=== PATIENT | female | born 1970 | race African-American/Black ===

== ENCOUNTER 2018-07-14 13:28 | Emergency (ER) | payer BC, SELFPAY | END 2018-07-14 14:00 | disposition home or self-care (01) | LOC: NAV ERS 13:28 | DX: J06.9 Acute upper respiratory infection, unspecified (principal); Z76.0 Encounter for issue of repeat prescription; I10 Essential (primary) hypertension; K21.9 Gastro-esophageal reflux disease without esophagitis; E78.5 Hyperlipidemia, unspecified; Z87.891 Personal history of nicotine dependence; Z79.899 Other long term (current) drug therapy; Z79.82 Long term (current) use of aspirin | CPT/HCPCS: 99283 ==

== ENCOUNTER 2020-12-02 20:48 | Emergency (ER) | payer BC ==
[2020-12-02] MEDS ORDERED: Aspirin Chewable 81 MG TAB ONE (21:03)
--- NOTE | 2020-12-02 21:18 | RAD ---
Exam: Chest one view HISTORY:Pain Comparison: 02/11/2012 FINDINGS: Cardiac silhouette: Normal Aorta: Unremarkable Pulmonary vessels: Normal Costophrenic angles: Clear LUNGS: No masses or consolidation. Pneumothorax: None Osseous abnormalities: None IMPRESSION: No acute cardiopulmonary process.
[2020-12-02 21:22] LABS: Red Blood Cell (RBC) Count 3.61 mill/uL (4.20-5.40); White Blood Cell (WBC) Count 6.2 thou/uL (4.8-10.8)
[2020-12-02 21:23] LABS: #Basophils 0.3 thou/uL (0.0-0.2); #Eosinphils 0.2 thou/uL (0.0-0.7); #Lymphocytes 2.4 thou/uL (1.20-3.40); #Monocytes 0.9 thou/uL (0.11-0.59); #Neutrophils 2.4 thou/uL (1.40-6.50); %Basophils 4.9 % (0.0-1.0); %Eosinophils 3.2 % (0.0-10.0); %Lymphocytes 37.1 % (21.0-51.0); %Monocytes 15.1 % (0.0-10.0); %Neutrophils 38.7 % (42.0-75.0); Hemoglobin 11.6 g/dL (12.0-16.0); Manual Diff?? NO; Mean Corpuscular HGB CONC 33.6 g/dL (32.0-36.0); Mean Corpuscular Hemoglobin 32.3 pg (27.0-31.0); Mean Corpuscular Volume 96.1 fL (78.0-98.0); Mean Platelet Volume 9.2 fL (7.4-10.4); Platelet Count 227 thou/uL (130-400); RBC Distribution Width 11.9 % (11.5-14.5)
[2020-12-02 21:24] LABS: Chloride 106 mmol/L (98-107)
[2020-12-02] MEDS ORDERED: Fentanyl 100 MCG/2 ML VIAL ONE (21:31)
[2020-12-02] MEDS ORDERED: Ondansetron PF 4 MG/2 ML Vial ONE (21:31)
[2020-12-02 21:32] LABS: ALT (SGPT) 210 U/L (8-55); AST (SGOT) 59 U/L (5-34); Alkaline Phosphatase 142 U/L (40-110); Anion Gap 15 mmol/L (10-20); BUN (Urea Nitrogen) 16 mg/dL (9.8-20.1); Bilirubin, Total 0.4 mg/dL (0.2-1.2); Calc. Creatinine Clearance 0 mL/min (70-130); Calcium 8.8 mg/dL (7.8-10.44); Carbon Dioxide 23 mmol/L (22-29); Globulin 3.2 g/dL (2.4-3.5); Glucose 103 mg/dL (70-105); Lipase 68 U/L (8-78); Potassium 3.7 mmol/L (3.5-5.1); Protein, Total 7.2 g/dL (6.0-8.3); Sodium 140 mmol/L (136-145)
== END 2020-12-02 22:23 | disposition left against medical advice (07) ==
LOC: NAV ERS 20:48
DX: R07.9 Chest pain, unspecified (principal); K21.9 Gastro-esophageal reflux disease without esophagitis; E78.5 Hyperlipidemia, unspecified; I10 Essential (primary) hypertension; F17.210 Nicotine dependence, cigarettes, uncomplicated; Z79.82 Long term (current) use of aspirin; Z79.899 Other long term (current) drug therapy
CPT/HCPCS: 71045; 80053; 83690; 83880; 84484; 85025; 93005; 94760; 96374; 96375; J2405; J3010

== ENCOUNTER 2022-07-10 13:04 | Emergency (ER) | payer BC ==
[~2022-07-10 13:04] MED LIST: Iopamidol 370 76% 100 ML VIAL ONE
[2022-07-10] MEDS ORDERED: Morphine 4 MG/ML VIAL ONE (13:40)
[2022-07-10 14:03] LABS: ALT (SGPT) 21 U/L (8-55); AST (SGOT) 22 U/L (5-34); Albumin 4.5 g/dL (3.5-5.0); Alkaline Phosphatase 127 U/L (40-110); Anion Gap 19 mmol/L (10-20); BUN (Urea Nitrogen) 13 mg/dL (9.8-20.1); Bilirubin, Total 0.6 mg/dL (0.2-1.2); Calc. Creatinine Clearance 0 mL/min (70-130); Carbon Dioxide 17 mmol/L (22-29); Chloride 107 mmol/L (98-107); Estimated GFR 94; Globulin 3.3 g/dL (2.4-3.5); Glucose 113 mg/dL (70-105); Lipase 13 U/L (8-78); Potassium 3.8 mmol/L (3.5-5.1); Protein, Total 7.8 g/dL (6.0-8.3); Sodium 139 mmol/L (136-145)
[2022-07-10 14:11] LABS: #Lymphocytes 1.2 thou/uL (1.20-3.40); #Monocytes 0.1 thou/uL (0.11-0.59); #Neutrophils 5.8 thou/uL (1.40-6.50); %Basophils 0.5 % (0.0-1.0); %Monocytes 1.4 % (0.0-10.0); Hemoglobin 12.7 g/dL (12.0-16.0); Mean Corpuscular Hemoglobin 32.1 pg (27.0-31.0); Mean Corpuscular Volume 97.5 fL (78.0-98.0); Mean Platelet Volume 10.1 fL (7.4-10.4); Platelet Count 242 thou/uL (130-400); RBC Distribution Width 12.2 % (11.5-14.5); Red Blood Cell (RBC) Count 3.95 mill/uL (4.20-5.40); White Blood Cell (WBC) Count 7.1 thou/uL (4.8-10.8)
[2022-07-10] MEDS ORDERED: Sodium Chloride 0.9% 1,000 ML ONE (14:23)
[2022-07-10] MEDS ORDERED: Sodium Chloride 0.9% 100 ML ONE (14:27)
[2022-07-10 14:30] LABS: Bilirubin Negative (Negative); Blood, Urine Trace (Negative); Glucose, Urine (Dipstick) Negative (Negative); Ketone, Urine Trace mg/dL (Negative); Leukocyte Trace (Negative); Nitrite Negative (Negative); Protein, Urine (Dipstick) Negative (Neg-Trace); Specific Gravity, Urine 1.015 (1.005-1.030); Urobilinogen 0.2 mg/dL (Less than 2)
[2022-07-10 14:32] LABS: Clarity SL HAZY (Clear)
[2022-07-10 14:41] LABS: RBC/HPF 0-3 HPF (0-3); Squamous Epithelial 0-3 HPF (0-3); WBC/HPF 0-3 HPF (0-3)
== END 2022-07-10 16:10 | disposition home or self-care (01) ==
LOC: NAV ERS 13:04
DX: R10.84 Generalized abdominal pain (principal); E86.0 Dehydration; K21.9 Gastro-esophageal reflux disease without esophagitis; I10 Essential (primary) hypertension; E78.5 Hyperlipidemia, unspecified; Z87.891 Personal history of nicotine dependence; Z79.82 Long term (current) use of aspirin; Z79.899 Other long term (current) drug therapy
CPT/HCPCS: 74177; 80053; 81003; 81015; 83605; 83690; 84484; 85025; 93005; 96361; 96374; 96375; J2270; J7050; Q9967

== ENCOUNTER → 2025-05-25 | Emergency (ER) | payer BC ==
[~2025-05-25] MED LIST changes: +HYDROcodone/Acetaminophen 5/325 mg Tablet ONE; +Ibuprofen 800 MG TAB ONE; -Iopamidol 370 76% 100 ML VIAL ONE; +Ketorolac Tromethamine 30 MG (1 mL) VIAL ONE
== END ==
LOC: NAV ERS 18:39
DX: M23.92 Unspecified internal derangement of left knee (principal); I10 Essential (primary) hypertension; F17.210 Nicotine dependence, cigarettes, uncomplicated; Z79.899 Other long term (current) drug therapy
CPT/HCPCS: 99283